=== PATIENT | female | born 1965 | race Caucasian/White ===

== ENCOUNTER 2016-04-23 20:26 | Emergency (ER) | payer BC, OTHER ==
[~2016-04-23] VITALS: Ht 167.6 cm; Wt 101.4 kg
[~2016-04-23 20:26] MED LIST: AFRIN,GENASAL D15 ML BOTH NARES; ALBUTEROL SULF8.5 GM IH; ALBUTEROL2.5 MG/3 M IH; ANORO ELLIPTA1 EACH IH; ASPIRIN325 MG PO; COMBIVENT RESPIM4 GM IH; DAILY VALUE1 EACH PO; HYDROXYZINE HCL25 MG PO; LEVAQUIN500 MG PO; LEVOFLOXACIN500 MG PO; MEGACE20 MG PO; MEGACE40 MG PO; MONTELUKAST SOD10 MG PO; MOTRIN600 MG PO; ONE DAILY TABL1 EAC1 PO; PAROXETINE HCL20 MG PO; PAXIL10 MG PO; PREDNISONE10 M1 PO; PREDNISONE10 MG PO; PREDNISONE20 MG PO; PROTONIX20 MG PO; PROTONIX40 MG PO; PROVENTIL,2.5 MG/3 M IH; PSEUDOEPHEDRINE30 MG PO; TYLENOL EXTRA500 MG PO; VENTOLIN HFA18 GM IH; VICODIN 5-3001 EACH PO; VITAMIN D400 UNI1 PO
[2016-04-23 21:04] LABS: MCH 26.6 PG (29.0-34.0); MCHC 31.8 G/DL (30.0-36.0); MCV 83.9 FL (83-99); MEAN PLAT.VOLUME 10.2 uM^3 (9.5-12.4); PLATELET COUNT 235 K/uL (156-360); RBC DIS.WIDTH-CV 14.1 % (11.8-14.6); RBC DIS.WIDTH-SD 42.1 % (39-53); RED BLOOD COUNT 4.77 M/uL (3.80-5.20); WHITE BLOOD COUNT 5.9 K/uL (4.1-10.2)
[2016-04-23 21:14] LABS: CHLORIDE 104 mEq/L (99-109); POTASSIUM 4.2 mEq/L (3.7-5.4); SODIUM 142 mEq/L (136-147)
[2016-04-23 21:16] LABS: GLUCOSE 93 mg/dL (70-99)
[2016-04-23 21:17] LABS: ANION GAP 11 MEQ/L (2-14)
[2016-04-23 21:19] LABS: GFR ESTIMATE (CALCULATED) > 59 mL/min/
[2016-04-23 21:20] LABS: UREA NITROGEN (BUN) 19 mg/dL (9-23)
[2016-04-23 22:50] LABS: D-DIMER ELISA 0.27 mg/L FEU (< 0.57)
[2016-04-23 22:56] LABS: TROP-I INTERPRETATION NEGATIVE; TROPONIN-I < 0.01 ng/mL (0.0-0.30)
[2016-04-24] MEDS ORDERED: TRAMADOL HCL50 MG PO (00:26)
[2016-04-24 00:49] VITALS: BP 144/80
== END 2016-04-24 00:52 | disposition home or self-care (01) ==
LOC: EME 20:26
DX: J44.1 Chronic obstructive pulmonary disease with (acute) exacerbation (principal); M79.1 Myalgia; Z99.81 Dependence on supplemental oxygen; Z87.891 Personal history of nicotine dependence
CPT/HCPCS: 71020; 80048; 83880; 84484; 85027; 85379; 93005; 94640; 99281; 99284

== ENCOUNTER 2016-04-25 22:30 | Emergency (ER) | payer BC, OTHER ==
[~2016-04-25] VITALS: Ht 167.6 cm; Wt 100.0 kg
[~2016-04-25 22:30] MED LIST changes: +TRAMADOL HCL50 MG PO
[2016-04-25 23:12] LABS: HEMATOCRIT 39.2 % (36.0-46.0); MCHC 32.1 G/DL (30.0-36.0); MCV 83.9 FL (83-99); MEAN PLAT.VOLUME 9.8 uM^3 (9.5-12.4); PLATELET COUNT 229 K/uL (156-360); RBC DIS.WIDTH-CV 13.9 % (11.8-14.6); RBC DIS.WIDTH-SD 42.2 % (39-53); RED BLOOD COUNT 4.67 M/uL (3.80-5.20); WHITE BLOOD COUNT 6.2 K/uL (4.1-10.2)
[2016-04-25 23:17] LABS: CHLORIDE 105 mEq/L (99-109); POTASSIUM 3.8 mEq/L (3.7-5.4); SODIUM 140 mEq/L (136-147)
[2016-04-25 23:19] LABS: GLUCOSE 101 mg/dL (70-99)
[2016-04-25 23:20] LABS: ANION GAP 12 MEQ/L (2-14)
[2016-04-25 23:23] LABS: GFR ESTIMATE (CALCULATED) > 59 mL/min/; UREA NITROGEN (BUN) 14 mg/dL (9-23)
[2016-04-25 23:30] LABS: TROP-I INTERPRETATION NEGATIVE; TROPONIN-I < 0.01 ng/mL (0.0-0.30)
[2016-04-26 02:20] LABS: TROP-I INTERPRETATION NEGATIVE; TROPONIN-I < 0.01 ng/mL (0.0-0.30)
[2016-04-26] MEDS ORDERED: LIDODERM 5% P1 PATCH TD (02:25)
[2016-04-26] MEDS ORDERED: VALIUM5 MG PO (02:25)
[2016-04-26] MEDS ORDERED: NORCO 5/3251 TABLET PO (02:25)
[2016-04-26 02:58] LABS: ADD MIUA? YES; BILIRUBIN NEGATIVE; BLOOD NEGATIVE; COLOR YELLOW ((YELLOW)); GLUCOSE (STRIP) NEGATIVE; KETONES NEGATIVE; LEUKOCYTES SMALL; NITRITE NEGATIVE; PROTEIN (STRIP) NEGATIVE; SPECIFIC GRAVITY 1.022 (1.000-1.030); UROBILINOGEN 0.2 MG/DL (0.2-1.0)
[2016-04-26 03:09] LABS: EPITHELIAL CELLS 2+; RED BLOOD CELLS 0-5 /HPF (0-5)
[2016-04-26 03:10] LABS: AMORPHOUS URATES CRYSTALS 1+; BACTERIA 1+; CASTS NONE SEEN /LPF; CRYSTALS PRESENT; MUCUS NONE SEEN; UCUL ADDED? NO
[2016-04-26] MEDS ORDERED: MACRODANTIN100 MG PO (03:14)
[2016-04-26 03:22] VITALS: BP 116/58
== END 2016-04-26 03:23 | disposition home or self-care (01) ==
LOC: EME 22:30
PROVIDERS: Emergency Medicine
DX: R07.89 Other chest pain (principal); M54.2 Cervicalgia; J44.1 Chronic obstructive pulmonary disease with (acute) exacerbation; N30.90 Cystitis, unspecified without hematuria; Z99.81 Dependence on supplemental oxygen; Z87.891 Personal history of nicotine dependence
CPT/HCPCS: 71020; 72131; 74176; 80048; 81003; 84484; 85027; 93005; 94640; 99281; 99283; J1170

== ENCOUNTER 2016-07-02 18:56 | Emergency (ER) | payer BC, OTHER ==
[~2016-07-02] VITALS: Ht 165.1 cm; Wt 96.3 kg
[~2016-07-02 18:56] MED LIST changes: +LIDODERM 5% P1 PATCH TD; +MACRODANTIN100 MG PO; +NORCO 5/3251 TABLET PO; +VALIUM5 MG PO
[2016-07-02 19:48] LABS: MCH 26.2 PG (29.0-34.0); MCHC 31.2 G/DL (30.0-36.0); MCV 83.8 FL (83-99); MEAN PLAT.VOLUME 9.8 uM^3 (9.5-12.4); PLATELET COUNT 238 K/uL (156-360); RBC DIS.WIDTH-CV 13.2 % (11.8-14.6); RBC DIS.WIDTH-SD 40.8 % (39-53); RED BLOOD COUNT 4.89 M/uL (3.80-5.20); WHITE BLOOD COUNT 5.2 K/uL (4.1-10.2)
[2016-07-02 19:57] LABS: CHLORIDE 105 mEq/L (99-109); POTASSIUM 4.1 mEq/L (3.7-5.4); SODIUM 142 mEq/L (136-147)
[2016-07-02 19:59] LABS: GLUCOSE 86 mg/dL (70-99)
[2016-07-02 20:00] LABS: ANION GAP 11 MEQ/L (2-14)
[2016-07-02 20:03] LABS: GFR ESTIMATE (CALCULATED) > 59 mL/min/
[2016-07-02 20:04] LABS: UREA NITROGEN (BUN) 12 mg/dL (9-23)
[2016-07-02 20:09] LABS: TROP-I INTERPRETATION NEGATIVE; TROPONIN-I < 0.01 ng/mL (0.0-0.30)
[2016-07-02 21:25] LABS: D-DIMER ELISA 0.37 mg/L FEU (< 0.57)
[2016-07-02] MEDS ORDERED: PREDNISONE50 MG PO (22:14)
[2016-07-02 22:59] VITALS: BP 124/89
== END 2016-07-02 23:13 | disposition home or self-care (01) ==
LOC: EME 18:56
PROVIDERS: Emergency Medicine
DX: J44.1 Chronic obstructive pulmonary disease with (acute) exacerbation (principal); Z87.891 Personal history of nicotine dependence
CPT/HCPCS: 71020; 80048; 84484; 85027; 85379; 93005; 94640; 99281; 99285; J7512